=== PATIENT | female | born 1975 | race Caucasian/White ===

== ENCOUNTER 2025-05-02 09:50 | Emergency (ER) | payer OTHER ==
[~2025-05-02] VITALS: Ht 165.1 cm; Wt 72.7 kg
[2025-05-02 10:09] VITALS: TEMP 98.1
[2025-05-02] MEDS ORDERED: DIPH50CA37 PO (11:13)
[2025-05-02] MEDS ORDERED: CEPH-558 PO (11:13)
[2025-05-02] MEDS ORDERED: ACET-66 PO (11:13)
[2025-05-02] MEDS: ACETAMINOPHEN 500 MG TABLET PO ONE (11:21)
[2025-05-02] MEDS ORDERED: CLIN300C58 PO (11:50)
[2025-05-02] MEDS ORDERED: HYDR30CR39 TP (12:11)
[2025-05-02 12:30] VITALS: BP 120/73; PULSE 75; RESP 18; O2SAT 98
== END 2025-05-02 12:31 | disposition home or self-care (01) ==
LOC: EMS 09:57
DX: S00.262A Insect bite (nonvenomous) of left eyelid and periocular area, initial encounter (principal); F12.90 Cannabis use, unspecified, uncomplicated; Z88.1 Allergy status to other antibiotic agents; Z88.2 Allergy status to sulfonamides; Z90.711 Acquired absence of uterus with remaining cervical stump; W57.XXXA Bitten or stung by nonvenomous insect and other nonvenomous arthropods, initial encounter; Y93.89 Activity, other specified; Y92.89 Other specified places as the place of occurrence of the external cause; Y99.8 Other external cause status
CPT/HCPCS: 99283; 82962; 96372; J1200; J7512